=== PATIENT | female | born 1940 | race Caucasian/White ===

== ENCOUNTER → 2023-06-09 | Outpatient (CLI) | payer MEDICARE, OTHER ==
[~2023-06-09] MED LIST: CRUTCH2 XX; Wheelchair1 EACH UD
== END | disposition home or self-care (01) ==
LOC: LAB 15:45 → LAB SHORT 15:45
DX: L03.032 Cellulitis of left toe (principal); L97.521 Non-pressure chronic ulcer of other part of left foot limited to breakdown of skin; R09.89 Other specified symptoms and signs involving the circulatory and respiratory systems
CPT/HCPCS: 87070; 87075; 87077; 87186; 87205

== ENCOUNTER 2023-09-24 15:22 | Emergency (ER) | payer MEDICARE, OTHER ==
[~2023-09-24] VITALS: Ht 165.1 cm; Wt 65.8 kg
[2023-09-24 16:00] LABS: BASOPHILS ABSOLUTE AUTO 0.03 K/mm3 (0.00-0.23); BASOPHILS PERCENT AUTO 1 % (0-2); EOSINOPHILS ABSOLUTE AUTO 0.06 K/mm3 (0.00-0.68); EOSINOPHILS PERCENT AUTO 1 % (0-6); Hematocrit 32.3 % (33.0-51.0); Hemoglobin 10.6 g/dL (11.5-16.0); IMMATURE GRAN ABSOLUTE AUTO 0.02 K/mm3 (0.00-0.10); IMMATURE GRAN PERCENT AUTO 0 % (0-1); LYMPHOCYTES ABSOLUTE AUTO 1.89 K/mm3 (0.84-5.20); LYMPHOCYTES PERCENT AUTO 30 % (21-46); MONOCYTES PERCENT AUTO 9 % (4-13); Mean Corpuscular HGB 33.9 pg (26.0-34.0); Mean Corpuscular HGB Conc 32.8 g/dL (31.5-36.5); Mean Corpuscular Volume 103 fL (80-100); Mean Platelet Volume 10.3 fL (9.1-12.4); NEUTROPHILS ABSOLUTE AUTO 3.78 K/mm3 (1.96-9.15); NEUTROPHILS PERCENT AUTO 59 % (41-73); Platelet Count 223 K/mm3 (150-400); RDW Coefficient Variation 13.7 % (11.7-14.2); RDW Standard Deviation 51.9 fL (35.1-46.3); Red Blood Cell Count 3.13 M/mm3 (3.80-5.20); White Blood Cell Count 6.38 K/mm3 (4.00-11.30)
[2023-09-24 16:38] LABS: Albumin, Blood 3.8 g/dL (3.4-5.0); Albumin/Globulin Ratio 1.2 (0.8-1.8); Bilirubin, Total 0.3 mg/dL (0.1-1.0); Bun/Creatinine Ratio 48.8 (12.0-20.0); Calcium, Blood 8.8 mg/dL (8.5-10.1); Creatinine, Blood 0.57 mg/dL (0.40-1.00); Globulin, Blood 3.2 g/dL (2.2-4.0); Potassium, Blood 4.3 mmol/L (3.5-5.5)
[2023-09-24] MEDS ORDERED: FOSAMAX70 MG PO (16:48)
[2023-09-24] MEDS ORDERED: ROSUVASTATIN CAL5 MG PO (16:49)
[2023-09-24 18:30] VITALS: BP 113/65
[2023-09-24] MEDS ORDERED: CEPH500 PO (20:35)
== END 2023-09-24 21:26 | disposition home or self-care (01) ==
LOC: ER 15:22
PROVIDERS: Physician Assistant
DX: S80.12XA Contusion of left lower leg, initial encounter (principal); W22.8XXA Striking against or struck by other objects, initial encounter; Z79.899 Other long term (current) drug therapy; Z88.8 Allergy status to other drugs, medicaments and biological substances
CPT/HCPCS: 73701; 80053; 85025; Q9967

== ENCOUNTER 2023-10-16 04:06 | Day surgery (SDC) | payer MEDICARE, OTHER ==
[~2023-10-16 04:06] MED LIST changes: +CEPH500 PO; +FOSAMAX70 MG PO; +ROSUVASTATIN CAL5 MG PO
[2023-10-16] MEDS ORDERED: Lidocaine HCl 4% Topical Soln 50 ML BTL ONE (09:49)
== END 2023-10-16 23:21 | disposition home or self-care (01) ==
LOC: WOUND 04:06
DX: S81.802A Unspecified open wound, left lower leg, initial encounter (principal); L97.825 Non-pressure chronic ulcer of other part of left lower leg with muscle involvement without evidence of necrosis; I87.2 Venous insufficiency (chronic) (peripheral); I73.9 Peripheral vascular disease, unspecified; X58.XXXA Exposure to other specified factors, initial encounter
CPT/HCPCS: 87071; 87075; 87076; 87077; 87147; 87185; 87186; 87205; G0463

== ENCOUNTER 2023-10-25 02:17 | Day surgery (SDC) | payer MEDICARE, OTHER ==
[2023-10-25] MEDS ORDERED: Lidocaine HCl 4% Cream 5 GM ONE (10:16)
== END 2023-10-25 22:49 | disposition home or self-care (01) ==
LOC: WOUND 02:17
PROC: 0JBP0ZZ Excision of Left Lower Leg Subcutaneous Tissue and Fascia, Open Approach (ICD-10-PCS; principal; 2023-10-25)
DX: I70.248 Atherosclerosis of native arteries of left leg with ulceration of other part of lower leg (principal); L97.825 Non-pressure chronic ulcer of other part of left lower leg with muscle involvement without evidence of necrosis; S81.802A Unspecified open wound, left lower leg, initial encounter; I87.2 Venous insufficiency (chronic) (peripheral)
CPT/HCPCS: A9270

== ENCOUNTER 2023-11-02 01:46 | Day surgery (SDC) | payer MEDICARE, OTHER ==
[2023-11-02] MEDS ORDERED: Lidocaine HCl 4% Cream 5 GM ONE (13:25)
== END 2023-11-02 23:30 | disposition home or self-care (01) ==
LOC: WOUND 01:46
DX: L97.825 Non-pressure chronic ulcer of other part of left lower leg with muscle involvement without evidence of necrosis (principal); I87.2 Venous insufficiency (chronic) (peripheral); I73.9 Peripheral vascular disease, unspecified
CPT/HCPCS: A9270

== ENCOUNTER 2023-11-16 04:45 | Day surgery (SDC) | payer MEDICARE, OTHER ==
[2023-11-16] MEDS ORDERED: Lidocaine HCl 4% Cream 5 GM ONE (12:03)
== END 2023-11-17 01:39 | disposition home or self-care (01) ==
LOC: WOUND 04:45
DX: S81.802A Unspecified open wound, left lower leg, initial encounter (principal); L97.825 Non-pressure chronic ulcer of other part of left lower leg with muscle involvement without evidence of necrosis; I87.2 Venous insufficiency (chronic) (peripheral); I73.9 Peripheral vascular disease, unspecified; X58.XXXA Exposure to other specified factors, initial encounter
CPT/HCPCS: A9270

== ENCOUNTER 2023-11-22 03:00 | Day surgery (SDC) | payer MEDICARE, OTHER ==
[2023-11-22] MEDS ORDERED: Lidocaine HCl 4% Cream 5 GM ONE (15:08)
== END 2023-11-22 23:00 | disposition home or self-care (01) ==
LOC: WOUND 03:00
DX: L97.822 Non-pressure chronic ulcer of other part of left lower leg with fat layer exposed (principal); I87.2 Venous insufficiency (chronic) (peripheral); I73.9 Peripheral vascular disease, unspecified
CPT/HCPCS: 87070; 87075; 87077; 87147; 87186; 87205; A9270

== ENCOUNTER 2023-11-29 02:26 | Day surgery (SDC) | payer MEDICARE, OTHER | END 2023-11-29 23:00 | disposition home or self-care (01) | LOC: WOUND 02:26 | DX: L97.822 Non-pressure chronic ulcer of other part of left lower leg with fat layer exposed (principal); I87.2 Venous insufficiency (chronic) (peripheral); I73.9 Peripheral vascular disease, unspecified | CPT/HCPCS: G0463 ==

== ENCOUNTER 2023-12-06 02:19 | Day surgery (SDC) | payer MEDICARE, OTHER ==
[2023-12-06] MEDS ORDERED: Lidocaine HCl 4% Cream 5 GM ONE (15:15)
== END 2023-12-07 02:45 | disposition home or self-care (01) ==
LOC: WOUND 02:19
DX: L97.825 Non-pressure chronic ulcer of other part of left lower leg with muscle involvement without evidence of necrosis (principal); I73.9 Peripheral vascular disease, unspecified; I87.2 Venous insufficiency (chronic) (peripheral)
CPT/HCPCS: A9270

== ENCOUNTER 2023-12-20 03:03 | Day surgery (SDC) | payer MEDICARE, OTHER ==
[2023-12-20] MEDS ORDERED: Lidocaine HCl 4% Topical Soln 5 MLUDC ONE (14:09)
== END 2023-12-20 23:24 | disposition home or self-care (01) ==
LOC: WOUND 03:03
DX: S81.802A Unspecified open wound, left lower leg, initial encounter (principal); L97.825 Non-pressure chronic ulcer of other part of left lower leg with muscle involvement without evidence of necrosis; I87.2 Venous insufficiency (chronic) (peripheral); I73.9 Peripheral vascular disease, unspecified; X58.XXXA Exposure to other specified factors, initial encounter
CPT/HCPCS: A9270

== ENCOUNTER 2023-12-27 03:36 | Day surgery (SDC) | payer MEDICARE, OTHER ==
[2023-12-27] MEDS ORDERED: Lidocaine HCl 4% Cream 5 GM ONE (14:03)
== END 2023-12-27 23:00 | disposition home or self-care (01) ==
LOC: WOUND 03:36
DX: S81.802A Unspecified open wound, left lower leg, initial encounter (principal); I87.2 Venous insufficiency (chronic) (peripheral); I73.9 Peripheral vascular disease, unspecified
CPT/HCPCS: 87070; 87075; 87077; 87186; 87205; A9270

== ENCOUNTER 2024-01-03 05:00 | Day surgery (SDC) | payer MEDICARE, OTHER ==
[2024-01-03] MEDS ORDERED: Lidocaine HCl 4% Cream 5 GM ONE (14:24)
== END 2024-01-03 23:00 | disposition home or self-care (01) ==
LOC: WOUND 05:00
DX: S81.802A Unspecified open wound, left lower leg, initial encounter (principal); I87.2 Venous insufficiency (chronic) (peripheral); I73.9 Peripheral vascular disease, unspecified
CPT/HCPCS: A9270

== ENCOUNTER 2024-01-10 04:40 | Day surgery (SDC) | payer MEDICARE, OTHER ==
[2024-01-10] MEDS ORDERED: Lidocaine HCl 4% Cream 5 GM ONE (14:48)
== END 2024-01-10 23:27 | disposition home or self-care (01) ==
LOC: WOUND 04:40
DX: S81.802A Unspecified open wound, left lower leg, initial encounter (principal); B95.62 Methicillin resistant Staphylococcus aureus infection as the cause of diseases classified elsewhere; B96.5 Pseudomonas (aeruginosa) (mallei) (pseudomallei) as the cause of diseases classified elsewhere; I87.2 Venous insufficiency (chronic) (peripheral); I73.9 Peripheral vascular disease, unspecified
CPT/HCPCS: A9270

== ENCOUNTER 2024-01-31 10:20 | Day surgery (SDC) | payer MEDICARE, OTHER ==
[2024-01-31] MEDS ORDERED: Lidocaine HCl 4% Cream 5 GM ONE (14:24)
== END 2024-01-31 23:00 | disposition home or self-care (01) ==
LOC: WOUND 10:20
DX: S81.802A Unspecified open wound, left lower leg, initial encounter (principal); L97.825 Non-pressure chronic ulcer of other part of left lower leg with muscle involvement without evidence of necrosis; I87.2 Venous insufficiency (chronic) (peripheral); I73.9 Peripheral vascular disease, unspecified; X58.XXXA Exposure to other specified factors, initial encounter
CPT/HCPCS: A9270

== ENCOUNTER 2024-02-07 02:15 | Day surgery (SDC) | payer MEDICARE, OTHER ==
[2024-02-07] MEDS ORDERED: Lidocaine HCl 4% Topical Soln 5 MLUDC ONE (14:26)
[2024-02-07] MEDS ORDERED: Lidocaine HCl 4% Cream 5 GM ONE (14:27)
== END 2024-02-07 23:00 | disposition home or self-care (01) ==
LOC: WOUND 02:15
DX: S82.225A Nondisplaced transverse fracture of shaft of left tibia, initial encounter for closed fracture (principal); S82.832A Other fracture of upper and lower end of left fibula, initial encounter for closed fracture; L97.825 Non-pressure chronic ulcer of other part of left lower leg with muscle involvement without evidence of necrosis; I87.2 Venous insufficiency (chronic) (peripheral); I73.9 Peripheral vascular disease, unspecified; M17.12 Unilateral primary osteoarthritis, left knee; M20.12 Hallux valgus (acquired), left foot; M19.072 Primary osteoarthritis, left ankle and foot; M81.0 Age-related osteoporosis without current pathological fracture; W22.8XXA Striking against or struck by other objects, initial encounter
CPT/HCPCS: 73562-LT; 73610; 73630; A9270

== ENCOUNTER 2024-02-28 06:00 | Day surgery (SDC) | payer MEDICARE, OTHER ==
[2024-02-28] MEDS ORDERED: Lidocaine HCl 4% Topical Soln 5 MLUDC ONE (14:20)
== END 2024-02-28 23:00 | disposition home or self-care (01) ==
LOC: WOUND 06:00
DX: S82.452D Displaced comminuted fracture of shaft of left fibula, subsequent encounter for closed fracture with routine healing (principal); I87.2 Venous insufficiency (chronic) (peripheral); M25.572 Pain in left ankle and joints of left foot; I73.9 Peripheral vascular disease, unspecified; S82.252D Displaced comminuted fracture of shaft of left tibia, subsequent encounter for closed fracture with routine healing; X58.XXXD Exposure to other specified factors, subsequent encounter
CPT/HCPCS: 73610; A9270; G0463

== ENCOUNTER 2024-03-06 04:51 | Day surgery (SDC) | payer MEDICARE, OTHER ==
[2024-03-06] MEDS ORDERED: Lidocaine HCl 4% Cream 5 GM ONE ×3 (14:51→15:16)
== END 2024-03-06 23:00 | disposition home or self-care (01) ==
LOC: WOUND 04:51
DX: S81.802A Unspecified open wound, left lower leg, initial encounter (principal); S81.801A Unspecified open wound, right lower leg, initial encounter; L97.825 Non-pressure chronic ulcer of other part of left lower leg with muscle involvement without evidence of necrosis; I87.2 Venous insufficiency (chronic) (peripheral); I73.9 Peripheral vascular disease, unspecified; X58.XXXA Exposure to other specified factors, initial encounter
CPT/HCPCS: A9270

== ENCOUNTER 2024-03-31 06:36 | Day surgery (SDC) | payer MEDICARE, OTHER ==
[2024-03-31] MEDS ORDERED: Lidocaine HCl 4% Cream 5 GM ONE (14:32)
== END 2024-03-31 23:00 | disposition home or self-care (01) ==
LOC: WOUND 06:36
DX: S81.802A Unspecified open wound, left lower leg, initial encounter (principal); S81.801A Unspecified open wound, right lower leg, initial encounter; X58.XXXA Exposure to other specified factors, initial encounter; I87.2 Venous insufficiency (chronic) (peripheral); I73.9 Peripheral vascular disease, unspecified
CPT/HCPCS: A9270

== ENCOUNTER 2024-04-24 01:02 | Day surgery (SDC) | payer MEDICARE, OTHER ==
[2024-04-24] MEDS ORDERED: Lidocaine HCl 4% Cream 5 GM ONE (14:27)
== END 2024-04-24 23:00 | disposition home or self-care (01) ==
LOC: WOUND 01:02
DX: S81.801A Unspecified open wound, right lower leg, initial encounter (principal); L97.825 Non-pressure chronic ulcer of other part of left lower leg with muscle involvement without evidence of necrosis; I87.2 Venous insufficiency (chronic) (peripheral); I73.9 Peripheral vascular disease, unspecified; X58.XXXA Exposure to other specified factors, initial encounter
CPT/HCPCS: A9270

== ENCOUNTER 2024-05-01 02:30 | Day surgery (SDC) | payer MEDICARE, OTHER ==
[2024-05-01] MEDS ORDERED: Lidocaine HCl 4% Cream 5 GM ONE (15:35)
== END 2024-05-01 23:00 | disposition home or self-care (01) ==
LOC: WOUND 02:30
DX: S81.802A Unspecified open wound, left lower leg, initial encounter (principal); S81.801A Unspecified open wound, right lower leg, initial encounter; L97.825 Non-pressure chronic ulcer of other part of left lower leg with muscle involvement without evidence of necrosis; I87.2 Venous insufficiency (chronic) (peripheral); I73.9 Peripheral vascular disease, unspecified; X58.XXXA Exposure to other specified factors, initial encounter
CPT/HCPCS: A9270

== ENCOUNTER 2024-05-08 04:21 | Day surgery (SDC) | payer MEDICARE, OTHER ==
[2024-05-08] MEDS ORDERED: Lidocaine HCl 4% Cream 5 GM ONE (15:18)
== END 2024-05-08 23:00 | disposition home or self-care (01) ==
LOC: WOUND 04:21
DX: L97.812 Non-pressure chronic ulcer of other part of right lower leg with fat layer exposed (principal); S81.802A Unspecified open wound, left lower leg, initial encounter; X58.XXXA Exposure to other specified factors, initial encounter; I87.2 Venous insufficiency (chronic) (peripheral); I73.9 Peripheral vascular disease, unspecified
CPT/HCPCS: A9270

== ENCOUNTER 2024-05-22 02:49 | Day surgery (SDC) | payer MEDICARE, OTHER ==
[2024-05-22] MEDS ORDERED: Lidocaine HCl 4% Cream 5 GM ONE (15:03)
== END 2024-05-22 23:00 | disposition home or self-care (01) ==
LOC: WOUND 02:49
DX: S81.802A Unspecified open wound, left lower leg, initial encounter (principal); B96.5 Pseudomonas (aeruginosa) (mallei) (pseudomallei) as the cause of diseases classified elsewhere; X58.XXXA Exposure to other specified factors, initial encounter; L97.812 Non-pressure chronic ulcer of other part of right lower leg with fat layer exposed; I87.2 Venous insufficiency (chronic) (peripheral); I73.9 Peripheral vascular disease, unspecified
CPT/HCPCS: A9270

== ENCOUNTER → 2024-06-03 | Day surgery (SDC) | payer MEDICARE, OTHER ==
[~2024-06-03] MED LIST changes: +Lidocaine HCl 4% Cream 5 GM ONE
== END ==
LOC: WOUND 02:13
DX: L97.822 Non-pressure chronic ulcer of other part of left lower leg with fat layer exposed (principal); L97.812 Non-pressure chronic ulcer of other part of right lower leg with fat layer exposed; S81.801D Unspecified open wound, right lower leg, subsequent encounter; I87.2 Venous insufficiency (chronic) (peripheral); I73.9 Peripheral vascular disease, unspecified
CPT/HCPCS: A9270

== ENCOUNTER 2024-06-30 06:11 | Day surgery (SDC) | payer MEDICARE, OTHER ==
[~2024-06-30 06:11] MED LIST changes: -Lidocaine HCl 4% Cream 5 GM ONE
[2024-06-30] MEDS ORDERED: Lidocaine HCl 4% Cream 5 GM ONE (14:41)
== END 2024-06-30 23:00 | disposition home or self-care (01) ==
LOC: WOUND 06:11
DX: L97.822 Non-pressure chronic ulcer of other part of left lower leg with fat layer exposed (principal); L97.812 Non-pressure chronic ulcer of other part of right lower leg with fat layer exposed; S81.801D Unspecified open wound, right lower leg, subsequent encounter; X58.XXXD Exposure to other specified factors, subsequent encounter; I87.2 Venous insufficiency (chronic) (peripheral); I73.9 Peripheral vascular disease, unspecified
CPT/HCPCS: A9270

== ENCOUNTER 2024-07-14 02:00 | Day surgery (SDC) | payer MEDICARE, OTHER ==
[2024-07-14] MEDS ORDERED: Lidocaine HCl 4% Topical Soln 50 ML BTL ONE (14:52)
== END 2024-07-14 23:22 | disposition home or self-care (01) ==
LOC: WOUND 02:00
DX: L97.822 Non-pressure chronic ulcer of other part of left lower leg with fat layer exposed (principal); L97.812 Non-pressure chronic ulcer of other part of right lower leg with fat layer exposed; I87.2 Venous insufficiency (chronic) (peripheral); I73.9 Peripheral vascular disease, unspecified
CPT/HCPCS: A6196

== ENCOUNTER 2024-09-01 05:06 | Day surgery (SDC) | payer MEDICARE, OTHER ==
[2024-09-01] MEDS ORDERED: Lidocaine HCl 4% Cream 5 GM ONE (15:02)
== END 2024-09-01 23:00 | disposition home or self-care (01) ==
LOC: WOUND 05:06
DX: L97.822 Non-pressure chronic ulcer of other part of left lower leg with fat layer exposed (principal); I87.2 Venous insufficiency (chronic) (peripheral); I73.9 Peripheral vascular disease, unspecified
CPT/HCPCS: A9270; G0463

== ENCOUNTER 2024-09-15 01:08 | Day surgery (SDC) | payer MEDICARE, OTHER ==
[2024-09-15] MEDS ORDERED: Lidocaine HCl 4% Cream 5 GM ONE (14:01)
== END 2024-09-15 23:00 | disposition home or self-care (01) ==
LOC: WOUND 01:08
DX: L97.822 Non-pressure chronic ulcer of other part of left lower leg with fat layer exposed (principal); S81.801A Unspecified open wound, right lower leg, initial encounter; I87.2 Venous insufficiency (chronic) (peripheral); I73.9 Peripheral vascular disease, unspecified
CPT/HCPCS: A9270

== ENCOUNTER 2024-09-29 01:06 | Day surgery (SDC) | payer MEDICARE, OTHER ==
[2024-09-29] MEDS ORDERED: Lidocaine HCl 4% Cream 5 GM ONE (14:46)
== END 2024-09-29 23:00 | disposition home or self-care (01) ==
LOC: WOUND 01:06
DX: L97.822 Non-pressure chronic ulcer of other part of left lower leg with fat layer exposed (principal); I87.2 Venous insufficiency (chronic) (peripheral); I73.9 Peripheral vascular disease, unspecified
CPT/HCPCS: A9270

== ENCOUNTER 2024-10-20 00:36 | Day surgery (SDC) | payer MEDICARE, OTHER | END 2024-10-20 23:24 | disposition home or self-care (01) | LOC: WOUND 00:36 | DX: L97.822 Non-pressure chronic ulcer of other part of left lower leg with fat layer exposed (principal); I87.2 Venous insufficiency (chronic) (peripheral); I73.9 Peripheral vascular disease, unspecified | CPT/HCPCS: G0463 ==

== ENCOUNTER 2024-11-03 01:30 | Day surgery (SDC) | payer MEDICARE, OTHER ==
[2024-11-03] MEDS ORDERED: Lidocaine HCl 4% Cream 5 GM ONE (14:22)
== END 2024-11-03 23:00 | disposition home or self-care (01) ==
LOC: WOUND 01:30
DX: L97.822 Non-pressure chronic ulcer of other part of left lower leg with fat layer exposed (principal); I87.2 Venous insufficiency (chronic) (peripheral); I73.9 Peripheral vascular disease, unspecified
CPT/HCPCS: A9270

== ENCOUNTER 2024-11-24 01:21 | Day surgery (SDC) | payer MEDICARE, OTHER ==
[2024-11-24] MEDS ORDERED: Lidocaine HCl 4% Cream 5 GM ONE (14:29)
== END 2024-11-24 23:00 | disposition home or self-care (01) ==
LOC: WOUND 01:21
DX: L97.822 Non-pressure chronic ulcer of other part of left lower leg with fat layer exposed (principal); I87.2 Venous insufficiency (chronic) (peripheral); I73.9 Peripheral vascular disease, unspecified
CPT/HCPCS: A9270

== ENCOUNTER 2024-12-22 01:13 | Day surgery (SDC) | payer MEDICARE, OTHER | END 2024-12-22 23:00 | disposition home or self-care (01) | LOC: WOUND 01:13 | DX: L97.822 Non-pressure chronic ulcer of other part of left lower leg with fat layer exposed (principal); I87.2 Venous insufficiency (chronic) (peripheral); I73.9 Peripheral vascular disease, unspecified | CPT/HCPCS: G0463 ==

== ENCOUNTER 2025-01-19 00:45 | Day surgery (SDC) | payer MEDICARE, OTHER ==
[2025-01-19] MEDS ORDERED: Lidocaine HCl 4% Cream 5 GM ONE (14:04)
== END 2025-01-19 23:00 | disposition home or self-care (01) ==
LOC: WOUND 00:45
DX: L97.822 Non-pressure chronic ulcer of other part of left lower leg with fat layer exposed (principal); I87.2 Venous insufficiency (chronic) (peripheral); I73.9 Peripheral vascular disease, unspecified
CPT/HCPCS: A9270; G0463

== ENCOUNTER 2025-02-09 00:22 | Day surgery (SDC) | payer MEDICARE, OTHER ==
[2025-02-09] MEDS ORDERED: Lidocaine HCl 4% Cream 5 GM ONE (13:38)
== END 2025-02-09 23:00 | disposition home or self-care (01) ==
LOC: WOUND 00:22
DX: L97.822 Non-pressure chronic ulcer of other part of left lower leg with fat layer exposed (principal); I87.2 Venous insufficiency (chronic) (peripheral); I73.9 Peripheral vascular disease, unspecified
CPT/HCPCS: A9270